=== PATIENT | male | born 2000 | race Caucasian/White ===

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

== ENCOUNTER 2019-06-04 12:25 | Emergency (ER) | payer OTHER ==
[~2019-06-04] VITALS: Ht 170.2 cm; Wt 108.9 kg
[2019-06-04 12:32] VITALS: BP 126/79
--- NOTE | 2019-06-04 13:05 | NUR ---
PT AMBULATED TO BED 04.
--- NOTE | 2019-06-04 13:13 | NUR ---
18/M presents to ED, c/o puncture wound on L foot, approx 0.2cm with mild surrounding erythema, no obvious swelling, x1 week, +CMS distally. Denies fever/chills. Pt awake and alert, skin normal color warm and dry, rr even and unlabored. Denies med hx or rx. Unsure of tdap vacc status
--- NOTE | 2019-06-04 13:49 | NUR ---
Stable. VSS. Afebrile. has reassessed and Dc'd home. To exit.
== END 2019-06-04 13:49 | disposition home or self-care (01) ==
LOC: MED 12:25
DX: S91.132A Puncture wound without foreign body of left great toe without damage to nail, initial encounter (principal); W27.1XXA Contact with garden tool, initial encounter; Y93.89 Activity, other specified; Y92.89 Other specified places as the place of occurrence of the external cause; Y99.0 Civilian activity done for income or pay
CPT/HCPCS: 73630; 90471; 90715; 99283